=== PATIENT | female | born 1930 | race Caucasian/White ===

== ENCOUNTER 2016-09-01 20:14 | Emergency (ER) | payer MEDICARE, BC ==
[2016-09-01 20:29] VITALS: BP 95/50
--- NOTE | 2016-09-01 20:43 | EDM.PDOC ---
ED HISTORY OF PRESENT ILLNESS - General Chief Complaint: Cardiovascular Problem Stated Complaint: by ambulance Time Seen by Provider: 09/01/16 20:38 Source of Information: Reports: Patient, Family History Limitations: Reports: No limitations - History of Present Illness INITIAL COMMENTS - FREE TEXT/NARRATIVE: family states Pt Dx with pulmonary hypertension Tx by Dr Baker @ [facility]. legs been more swollen since yesterday, PEDIATRIC RADIOLOGIST deveolped CP/SOB better now tih O2 NRM. @ home take O2 @ 5 lpm and sat @ 80s. did try extra lasix but not help much. - Related Data Allergies/ADRs: Allergies Allergy/AdvReac Type Severity Reaction Status Date / Time codeine Allergy Dizziness Uncoded 09/01/16 20:29 Home Meds: Home Meds Febuxostat [Uloric] 40 mg PO DAILY 03/19/15 [History] Potassium Chloride 2 tab PO DAILY 03/19/15 [History] Metolazone 0.5 tab PO ASDIRECTED PRN 05/30/15 [History] Midodrine 2.5 mg PO TIDAC #60 tablet 06/27/15 [Rx] Digoxin [Digoxin] 125 mcg PO ASDIRECTED 09/01/16 [History] Furosemide [Furosemide] 40 mg PO DAILY 09/01/16 [History] Riociguat [Adempas] 0.5 mg PO TID 09/01/16 [History] Past Medical History HEENT History: Reports: Cataract Other HEENT History: bilaterally cataracts Cardiovascular History: Reports: Heart Failure, High cholesterol, Hypertension, [place], SOB on exertion Respiratory History: Reports: Bronchitis, recurrent, SOB Other Respiratory History: uses O2 at home Gastrointestinal History: Reports: Hemorrhoids Other Gastrointestinal History: H-PYLORI POSITIVE Genitourinary History: Reports: Other (see below) Other Genitourinary History: ckd stage 3 [employer]AL [employer] History: Reports: Other OB/BYN History: tumur on bladder. no cancer 6 nvd Musculoskeletal History: Reports: Gout Neurological History: Reports: Neuropathy, diabetic Psychiatric History: Reports: Depression Endocrine/Metabolic History: Reports: Diabetes, type II Hematologic History: Reports: Anemia, Blood transfusion(s) Immunologic History: Reports: None Oncologic (Cancer) History: Reports: None Dermatologic History: Reports: Other (see below) Other Dermatologic History: legs weepy right side - Infectious Disease History Infectious Disease History: Reports: Chicken pox - Past Surgical History HEENT Surgical History: Reports: Adenoidectomy, Cataract surgery, Tonsillectomy Cardiovascular Surgical History: Reports: None GI Surgical History: Reports: Appendectomy, Cholecystectomy, Colonoscopy, EGD Other Endocrine Surgeries/Procedures: stopped metformin recently Neurological Surgical History: Reports: None Musculoskeletal Surgical History: Reports: None Social & Family History - Family History HEENT: Reports: Other (see below) Other HEENT Family History: brother was blind Cardiac: Reports: Heart failure Respiratory: Reports: Other (see below) Other Respiratory Family Hisory: dad from emphysema GI: Reports: None Neurological: Reports: Seizure Endocrine/Metabolic: Reports: Diabetes, type II - Tobacco Use Smoking Status *Q: Never Smoker Second Hand Smoke Exposure: No - Recreational Drug Use Recreational Drug Use: No - Living Situation & Occupation Living situation: Reports: , alone Occupation: retired ED ROS GENERAL - Review of Systems Review Of Systems: ROS reveals no pertinent complaints other than HPI. ED EXAM, GENERAL - Physical Exam Exam: See Below Exam Limited By: No limitations General Appearance: alert, WD/WN, mild distress Ears: hearing grossly normal Throat/Mouth: Normal voice, No airway compromise Head: atraumatic Neck: non-tender, full range of motion Respiratory/Chest: no respiratory distress, no accessory muscle use, rales, rhonchi Cardiovascular: regular rate, rhythm GI/Abdominal: soft, non tender Extremities: pedal edema, other (3+ bilateral) Neurological: alert, oriented, normal cognition, no motor/sensory deficits, other (gait limited to leg swelling) Psychiatric: flat affect Skin Exam: Warm, Dry Lymphatic: no adenopathy Course - Vital Signs Last Recorded V/S: Last Vital Signs Temp 37.3 C 09/01/16 20:21 Pulse 85 09/01/16 20:21 Resp 23 H 09/01/16 20:21 BP 95/50 L 09/01/16 20:21 Pulse Ox 91 L 09/01/16 20:21 - Orders/Labs/Meds Orders: Active Orders 24 hr Category Date Time Status EKG Documentation Completion [RC] STAT Care 09/01/16 20:26 Active CULTURE BLOOD [BC] Stat Lab 09/01/16 20:30 Results Labs: Laboratory Tests 09/01/16 09/01/16 09/01/16 Range/Units 20:30 20:30 20:30 WBC 11.3 H (5.0-10.0) 10^3/uL RBC 4.83 (4.2-5.4) 10^6/uL Hgb 12.0 (12.0-16.0) g/dL Hct 39.5 (37.0-47.0) % MCV 81.8 (80-100) fL MCH 24.8 L (27.0-34.0) pg MCHC 30.4 L (33.0-35.0) g/dL Plt Count 178 (150-450) 10^3/uL Neut % (Auto) 75.5 H (42.2-75.2) % Lymph % (Auto) 13.5 L (20.5-50.1) % [facility] % (Auto) 10.3 H (2-8) % Eos % (Auto) 0.4 L (1.0-3.0) % Baso % (Auto) 0.3 (0.0-1.0) % Sodium 136 (135-145) mmol/L Potassium 3.5 L (3.6-5.0) mmol/L Chloride 98 L (101-111) mmol/L Carbon Dioxide 28.0 (21.0-31.0) mmol/L Anion Gap 13.5 BUN 53 H (7-18) mg/dL Creatinine 2.2 H (0.6-1.3) mg/dL Est Cr Clr Drug Dosing 17.85 mL/min Estimated GFR (MDRD) 21 BUN/Creatinine Ratio 24.09 Glucose 138 H (74-105) mg/dL Lactic Acid 1.6 (0.5-2.2) mmol/L Calcium 10.6 H (8.4-10.2) mg/dl Total Bilirubin 1.2 H (0.2-1.0) mg/dL AST 18 (10-42) IU/L ALT 10 (10-60) IU/L Alkaline Phosphatase 72 (42-121) IU/L Troponin I 0.11 H* (0.00-0.02) ng/ml B-Natriuretic Peptide 416 H (0-100) pg/ml Total Protein 6.8 (6.7-8.2) g/dl Albumin 3.9 (3.2-5.5) g/dl Globulin 2.9 Albumin/Globulin Ratio 1.34 - Re-Assessments/Exams Free Text/Narrative Re-Assessment/Exam: 09/01/16 21:[address] Jacinto @ who kindly accepted Pt. Departure - Departure Time of Disposition: 21:55 Disposition: DC/Tfer to [facility] Reason for Transfer *Q: Other Condition: fair Clinical Impression: Pulmonary edema with congestive heart failure, Pulmonary hypertension associated with vasculitis, Chronic kidney disease (CKD), stage III (moderate), Elevated troponin, Elevated brain natriuretic peptide (BNP) level Forms: Interfacility Transfer EMTALA - My Orders Last 24 Hours: My Active Orders 09/01/16 20:26 EKG Documentation Completion [RC] STAT 09/01/16 20:30 CULTURE BLOOD [BC] Stat - Assessment/Plan Last 24 Hours: My Active Orders 09/01/16 20:26 EKG Documentation Completion [RC] STAT 09/01/16 20:30 CULTURE BLOOD [BC] Stat
[2016-09-01] MEDS ORDERED: Acetaminophen 325 MG Tab PO ONE (21:58)
--- NOTE | 2016-09-04 11:10 | EKG ---
09/01/2016 - KERRY WILDER - TIME: 2017 hours. EKG shows atrial fibrillation with controlled ventricular response. There is right bundle branch block. [facility] /[id number]
== END 2016-09-01 22:32 ==
LOC: DL.ED 20:14
DX: I13.0 Hypertensive heart and chronic kidney disease with heart failure and stage 1 through stage 4 chronic kidney disease, or unspecified chronic kidney disease (principal); N18.3 Chronic kidney disease, stage 3 (moderate); I50.9 Heart failure, unspecified; R79.89 Other specified abnormal findings of blood chemistry; I27.2 Other secondary pulmonary hypertension; E78.00 Pure hypercholesterolemia, unspecified; I25.2 Old myocardial infarction; E11.40 Type 2 diabetes mellitus with diabetic neuropathy, unspecified; F32.9 Major depressive disorder, single episode, unspecified; Z86.2 Personal history of diseases of the blood and blood-forming organs and certain disorders involving the immune mechanism; Z98.890 Other specified postprocedural states; Z98.49 Cataract extraction status, unspecified eye; Z90.49 Acquired absence of other specified parts of digestive tract; Z79.899 Other long term (current) drug therapy; Z88.5 Allergy status to narcotic agent
CPT/HCPCS: 36415; 71010; 80053; 83605; 83880; 84484; 85025; 87040; 93005; 99285; A9270; 93010; 99284